=== PATIENT | male | born 1950 | race Hispanic/Latino ===

== ENCOUNTER 2022-10-22 10:44 | Emergency (ER) | payer OTHER ==
[~2022-10-22 10:44] MED LIST: Iopamidol 300 61% 100 ML VIAL FS ONE
[2022-10-22 11:27] LABS: Hematocrit 31.7 % (38.8-50.0); Mean Corpuscular HGB CONC 34.7 g/dL (32.0-36.0); Mean Corpuscular Hemoglobin 32.4 pg (27.0-33.0); Mean Corpuscular Volume 93.5 fl (81.2-95.1); Platelet Count 404 10x3/uL (150-450); RBC Distribution Width 11.9 % (11.5-14.5); Red Blood Cell (RBC) Count 3.39 10x6/uL (4.32-5.72); White Blood Cell (WBC) Count 6.4 10x3/uL (3.5-10.5)
[2022-10-22 11:30] LABS: MDiff Complete? YES
[2022-10-22 11:49] LABS: ALT (SGPT) 21 U/L (8-55); AST (SGOT) 29 U/L (5-34); Alkaline Phosphatase 73 U/L (40-110); Anion Gap 13 mmol/L (10-20); BUN (Urea Nitrogen) 16 mg/dL (8.4-25.7); Bilirubin, Total 0.6 mg/dL (0.2-1.2); Calc. Creatinine Clearance 0 mL/min (70-130); Calcium 7.5 mg/dL (7.8-10.44); Carbon Dioxide 36 mmol/L (23-31); Chloride 89 mmol/L (98-107); Estimated GFR 96; Globulin 3.1 g/dL (2.4-3.5); Glucose 123 mg/dL (83-110); Protein, Total 6.1 g/dL (5.8-8.1); Sodium 136 mmol/L (136-145)
[2022-10-22 11:53] LABS: Potassium 2.3 mmol/L (3.5-5.1)
[2022-10-22 12:47] LABS: Band 20 % (5-11); Lymphocytes 13 % (21-51); Monocytes 7 % (0-10); Neutrophil 60 % (42-75)
[2022-10-22 12:49] LABS: Platelet Adequacy Comment Appears Adequate; RBC Morph Comment Within Normal Limits
[2022-10-22] MEDS ORDERED: NS 0.9% w/ 20 MEQ KCL 1,000 ML ONE (13:11)
== END 2022-10-22 18:29 | disposition short-term general hospital (02) ==
LOC: EEVIPCON 10:44 → CSHERS 10:44
DX: E87.6 Hypokalemia (principal); K52.9 Noninfective gastroenteritis and colitis, unspecified; K21.9 Gastro-esophageal reflux disease without esophagitis; E78.00 Pure hypercholesterolemia, unspecified; I10 Essential (primary) hypertension; Z79.899 Other long term (current) drug therapy
CPT/HCPCS: 74177; 80053; 85025; 93005; 96374; J3480; Q9967